=== PATIENT | female | born 1990 | race American Indian/Alaskan Native ===

== ENCOUNTER 2016-12-25 22:41 | Emergency (ER) | payer MEDICAID ==
[2016-12-26] MEDS ORDERED: Sodium Chloride 0.9% 1,000 ML IV ONE (01:17)
[2016-12-26] MEDS ORDERED: Ondansetron 4 MG/2 ML SDV IV ONE (01:18)
[2016-12-26 02:03] LABS: CHLORIDE,CL 106 mmol/L (101-111); SODIUM,NA 141 mmol/L (135-145)
[2016-12-26 02:20] VITALS: BP 106/42
[2016-12-26] MEDS ORDERED: cefTRIAXone 2 GM in Sodium Chloride 0.9% 100 ML IV ONE (02:22)
--- NOTE | 2016-12-26 03:03 | EDM.PDOC ---
ED HPI GENERAL MEDICAL PROBLEM - General Chief Complaint: Gastrointestinal Problem Stated Complaint: VOMITING ALL DAY Time Seen by Provider: 12/26/16 01:00 Source of Information: Reports: Patient History Limitations: Reports: No Limitations - History of Present Illness INITIAL COMMENTS - FREE TEXT/NARRATIVE: C/O nausea vomiting and diarrhea today. Chills this evening. 7-8 loose watery stools, Vomited 5-6 times. Denies pain, feels bloated and gassy Onset: Today Abdominal Pain Score (Numeric/FACES): 2 - Related Data Allergies Allergy/AdvReac Type Severity Reaction Status Date / Time diphenhydramine HCl Allergy Hives Verified 12/26/16 01:01 [From Benadryl] codeine AdvReac Vomiting Verified 11/20/15 10:02 morphine AdvReac Vomiting Verified 12/26/16 01:01 Home Meds: Home Meds . 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: , Spontaneous Musculoskeletal History: Reports: Back Pain, Chronic Neurological History: Reports: Concussion Psychiatric History: Reports: Anxiety Endocrine/Metabolic History: Reports: Obesity/BMI 30+ Hematologic History: Reports: Other (See Below) Other Hematologic History: spherocytosis Immunologic History: Reports: Immunosuppression Other Immunologic History: spherocytosis with splenectomy in 1998 Oncologic (Cancer) History: Reports: None Dermatologic History: Reports: None - Infectious Disease History Infectious Disease History: Reports: Chicken Pox - Past Surgical History Head Surgeries/Procedures: Reports: None GI Surgical History: Reports: Appendectomy, Cholecystectomy, Other (See Below) Other GI Surgeries/Procedures: spleenectomy Musculoskeletal Surgical History: Reports: Other (See Below) Other Musculoskeletal Surgeries/Procedures:: broke hip and pelvic Social & Family History - Tobacco Use Smoking Status *Q: Current Every Day Smoker Years of Tobacco use: 6 Packs/Tins Daily: 0.5 Second Hand Smoke Exposure: Yes - Caffeine Use Caffeine Use: Reports: Coffee, Soda - Alcohol Use Days Per Week of Alcohol Use: 0 - Recreational Drug Use Recreational Drug Use: Yes Drug Use in Last 12 Months: Yes Recreational Drug Type: Reports: Marijuana/Hashish Recreational Drug Use Frequency: Weekly - Living Situation & Occupation Living situation: Reports: Single, with Family ED ROS GENERAL - Review of Systems Review Of Systems: See Below Constitutional: Reports: Chills HEENT: Reports: No Symptoms Respiratory: Reports: No Symptoms Cardiovascular: Reports: No Symptoms GI/Abdominal: Reports: Diarrhea, Decreased Appetite, Nausea. Denies: Abdominal Pain : Reports: No Symptoms Musculoskeletal: Reports: No Symptoms Skin: Reports: No Symptoms Neurological: Reports: No Symptoms ED EXAM, GI/ABD - Physical Exam Exam: See Below Exam Limited By: No Limitations General Appearance: Alert, Mild Distress Ears: Normal External Exam, Normal Canal Nose: Normal Inspection, Normal Mucosa Throat/Mouth: Normal Lips, Normal Oropharynx Head: Atraumatic, Normocephalic Neck: Normal Inspection, Supple, Non-Tender Respiratory/Chest: No Respiratory Distress, Lungs Clear, Normal Breath Sounds Cardiovascular: Normal Peripheral Pulses, Regular Rate, Rhythm GI/Abdominal: Normal Bowel Sounds, Soft, No Distention, Hyperactive Bowel Sounds , Tenderness (epigastric). No: Hepatomegaly, Splenomegaly, McBurney's Sign, Hollis's Sign Extremities: Normal Inspection Neurological: Alert, Oriented Psychiatric: Normal Affect Skin Exam: Warm, Dry, Intact, Normal Color Course - Vital Signs Last Recorded V/S: Last Vital Signs Temp 97.1 F 12/26/16 02:18 Pulse 64 12/26/16 02:18 Resp 16 12/26/16 02:18 BP 106/42 L 12/26/16 02:18 Pulse Ox 98 12/26/16 02:18 - Orders/Labs/Meds Labs: Laboratory Tests 12/26/16 12/26/16 12/26/16 Range/Units 01:05 01:05 01:35 WBC 20.0 H (5.0-10.0) 10^3/uL RBC 5.54 H (4.2-5.4) 10^6/uL Hgb 14.0 (12.0-16.0) g/dL Hct 42.4 (37.0-47.0) % MCV 76.5 L (80-100) fL MCH 25.3 L (27.0-34.0) pg MCHC 33.0 (33.0-35.0) g/dL Plt Count 526 H (150-450) 10^3/uL Neut % (Auto) 85.8 H (42.2-75.2) % Lymph % (Auto) 9.1 L (20.5-50.1) % Burleigh % (Auto) 3.9 (2-8) % Eos % (Auto) 1.0 (1.0-3.0) % Baso % (Auto) 0.2 (0.0-1.0) % Sodium (135-145) mmol/L Potassium (3.6-5.0) mmol/L Chloride (101-111) mmol/L Carbon Dioxide (21.0-31.0) mmol/L Anion Gap BUN (7-18) mg/dL Creatinine (0.6-1.3) mg/dL Est Cr Clr Drug Dosing mL/min Estimated GFR (MDRD) BUN/Creatinine Ratio Glucose (74-105) mg/dL Calcium (8.4-10.2) mg/dl Total Bilirubin (0.2-1.0) mg/dL AST (10-42) IU/L ALT (10-60) IU/L Alkaline Phosphatase (42-121) IU/L C-Reactive Protein (0.0-1.3) mg/dL Total Protein (6.7-8.2) g/dl Albumin (3.2-5.5) g/dl Globulin Albumin/Globulin Ratio Amylase (28-100) U/L Lipase (22-51) U/L Urine Color Yellow (YELLOW) Urine Appearance Slightly cloudy (CLEAR) Urine pH 6.0 (5.0-9.0) Ur Specific Walton 1.025 (1.005-1.030) Urine Protein 30 H (NEGATIVE) Urine Glucose (UA) Negative (NEGATIVE) Urine Ketones 80 H (NEGATIVE) Urine Occult Blood Negative (NEGATIVE) Urine Nitrite Positive H (NEGATIVE) Urine Bilirubin Small H (NEGATIVE) Urine Urobilinogen 1.0 (0.2-1.0) mg/dL Ur Leukocyte Esterase Trace H (NEGATIVE) Urine RBC 0-5 /HPF Urine WBC 0-5 (0-5/HPF) /HPF Ur Epithelial Cells Moderate H /HPF Urine Bacteria Many H (0-FEW/HPF) /HPF Urine Mucus Moderate H /LPF Urinalysis Comment Urine HCG, Qual Negative 12/26/16 12/26/16 Range/Units 01:35 01:35 WBC (5.0-10.0) 10^3/uL RBC (4.2-5.4) 10^6/uL Hgb (12.0-16.0) g/dL Hct (37.0-47.0) % MCV (80-100) fL MCH (27.0-34.0) pg MCHC (33.0-35.0) g/dL Plt Count (150-450) 10^3/uL Neut % (Auto) (42.2-75.2) % Lymph % (Auto) (20.5-50.1) % Burleigh % (Auto) (2-8) % Eos % (Auto) (1.0-3.0) % Baso % (Auto) (0.0-1.0) % Sodium 141 (135-145) mmol/L Potassium 3.5 L (3.6-5.0) mmol/L Chloride 106 (101-111) mmol/L Carbon Dioxide 24.0 (21.0-31.0) mmol/L Anion Gap 14.5 BUN 12 (7-18) mg/dL Creatinine 0.6 (0.6-1.3) mg/dL Est Cr Clr Drug Dosing 116.97 mL/min Estimated GFR (MDRD) > 60 BUN/Creatinine Ratio 20.00 Glucose 99 (74-105) mg/dL Calcium 8.7 (8.4-10.2) mg/dl Total Bilirubin 1.0 (0.2-1.0) mg/dL AST 18 (10-42) IU/L ALT 16 (10-60) IU/L Alkaline Phosphatase 98 (42-121) IU/L C-Reactive Protein 1.3 (0.0-1.3) mg/dL Total Protein 7.8 (6.7-8.2) g/dl Albumin 4.4 (3.2-5.5) g/dl Globulin 3.4 Albumin/Globulin Ratio 1.29 Amylase 47 (28-100) U/L Lipase 29 (22-51) U/L Urine Color (YELLOW) Urine Appearance (CLEAR) Urine pH (5.0-9.0) Ur Specific Walton (1.005-1.030) Urine Protein (NEGATIVE) Urine Glucose (UA) (NEGATIVE) Urine Ketones (NEGATIVE) Urine Occult Blood (NEGATIVE) Urine Nitrite (NEGATIVE) Urine Bilirubin (NEGATIVE) Urine Urobilinogen (0.2-1.0) mg/dL Ur Leukocyte Esterase (NEGATIVE) Urine RBC /HPF Urine WBC (0-5/HPF) /HPF Ur Epithelial Cells /HPF Urine Bacteria (0-FEW/HPF) /HPF Urine Mucus /LPF Urinalysis Comment Urine HCG, Qual Meds: Medications Discontinued Medications Generic Name Dose Route Start Last Admin Trade Name Ruchi PRN Reason Stop Dose Admin Sodium Chloride 1,000 mls @ 999 mls/hr 12/26/16 01:17 12/26/16 01:28 Normal Saline IV 12/26/16 02:17 999 mls/hr .BOLUS ONE Administration Ceftriaxone Sodium 2 gm/ 100 mls @ 200 mls/hr 12/26/16 02:22 12/26/16 02:39 Sodium Chloride IV 12/26/16 02:51 200 mls/hr ONETIME ONE Administration Ondansetron HCl 4 mg 12/26/16 01:18 12/26/16 01:29 Zofran IV 12/26/16 01:19 4 mg ONETIME ONE Administration Departure - Departure Time of Disposition: 03:00 Disposition: Home, Self-Care 01 Condition: Good Clinical Impression: UTI, Urinary tract infectious disease, Gastroenteritis - Discharge Information Instructions: Dehydration, Adult, Melr-hb-[id number], Diarrhea, Adult, [id number] Forms: ED Department Discharge Additional Instructions: increase fluid intake cipro 500mg one twice daily for 5 days zofran 4mg ODT one every 8 hours as needed for nausea #6 Follow up if symptoms worsen or unable to tolerate oral antibiotic and liquids
== END 2016-12-26 03:26 | disposition home or self-care (01) ==
LOC: DL.ED 22:41
DX: K52.9 Noninfective gastroenteritis and colitis, unspecified (principal); N39.0 Urinary tract infection, site not specified; K21.9 Gastro-esophageal reflux disease without esophagitis; E66.9 Obesity, unspecified; F17.210 Nicotine dependence, cigarettes, uncomplicated; H54.7 Unspecified visual loss; Z98.890 Other specified postprocedural states; Z90.49 Acquired absence of other specified parts of digestive tract; Z88.8 Allergy status to other drugs, medicaments and biological substances; Z88.6 Allergy status to analgesic agent; Z88.5 Allergy status to narcotic agent
CPT/HCPCS: 36415; 80053; 81001; 81025; 82150; 83690; 85025; 86140; 87086; 87491; 87591; 96365; 96367; 96375; 99284; J0696; J2405; J7030; J7050; 87088; 87186

== ENCOUNTER 2017-09-14 08:34 | Inpatient (IN) | payer MEDICAID ==
[~2017-09-14 08:34] MED LIST: Misoprostol 50 MCG (1/2 of 100 MCG) Tab VAG PRN; Penicillin G Potassium 5 MILLUNITS in Sodium Chloride 0.9% 100 ML IV PRN; Sodium Chloride 0.9% 10 ML Syringe FLUSH PRN
[2017-09-14] MEDS: Lactated Ringers 1,000 ML IV SCH ×3 (10:00→21:35)
[2017-09-14] MEDS ORDERED: Ondansetron 4 MG/2 ML SDV IVPUSH PRN (10:00)
[2017-09-14] MEDS ORDERED: Misoprostol 400 MCG (4 X 100 MCG TAB) RECTAL PRN (12:31)
[2017-09-14] MEDS ORDERED: Tranexamic Acid 1,000 MG in Sodium Chloride 0.9% 100 ML IV PRN (12:31)
[2017-09-14] MEDS ORDERED: Methylergonovine 0.2 MG/1 ML Amp IM PRN (12:31)
[2017-09-14] MEDS ORDERED: Lactated Ringers 500 ML IV ONE (12:31)
[2017-09-14] MEDS ORDERED: Lidocaine 1% 30 ML SDV INJECT PRN (12:31)
[2017-09-14] MEDS ORDERED: Carboprost Tromethamine 250 MCG/1 ML Amp IM PRN (12:31)
[2017-09-14] MEDS ORDERED: Oxytocin/Normal Saline 30 UNIT/500 ML BAG IV SCH (12:45)
[2017-09-14] MEDS: Penicillin G Potassium 2.5 MILLUNITS in Sodium Chloride 0.9% 100 ML IV SCH ×3 (13:44→20:58)
--- NOTE | 2017-09-14 20:12 | PCM.SN ---
- Free Text/Narrative Note: DOS: [id number] feeling cxns stronger no leakage of fluid or bleeding. baby active FHR reassuring cervix 7+ BOWI vertex -1/0 with cxn AROM with return of clear fluid. will allow to use hydrotherapy continue to monitor closely continue PCN prophylaxis for GBS continue to monitor VS may have intrathecal when indicated if desired. further management pending her clinical course in labor. All questions answered patient and staff aware of and satisfied with plan. brittanib.
[2017-09-14] MEDS ORDERED: Bupivacaine 0.75%/D5W 2 ML Amp ONE (20:46)
[2017-09-14] MEDS ORDERED: EPINEPHrine 1 MG/ML SDV ONE (20:46)
[2017-09-14] MEDS ORDERED: fentaNYL 100 MCG/2 ML SDV ONE (20:46)
--- NOTE | 2017-09-14 21:20 | PCM.SN ---
- Free Text/Narrative Note: Intrathecal. Sitting position, sterile prep and drape, 1 % lidocaine x 3 to L3 L4 and L2 L3 interspace. Introducer x 3, 24 Ga Pencan x3 . Pos CSF at L2 L3 interspace. Neg heme, neg parasthesia. 20 mcg PF sufenta, 30 mcg pf fentanyl, 1: 1000 pf epi wash, 0.4 ml pf ns and 6 mg of 0.75 % pf bupivacaine injected after CSF aspiration. Pt to L lateral side. Procedure time 2044 to 2129
[2017-09-14] MEDS ORDERED: ePHEDrine 50 MG/ML SDV ONE (21:47)
[2017-09-14] MEDS ORDERED: ePHEDrine 50 MG/ML SDV IVPUSH ONE (22:03)
--- NOTE | 2017-09-15 02:02 | DEL ---
DATE: 09/15/2017 PREOPERATIVE DIAGNOSES: 1. Intrauterine at 39 weeks' gestation. 2. Group B streptococcus positive. 3. Penicillin prophylaxis given. 4. G3, P1-0-1-1. 5. Gestational hypertension. 6. Advanced cervical dilation. 7. Hereditary spherocytosis with history of splenectomy. 8. Blood type O positive, rubella immune. 9. Positive UDS for methamphetamine on-admit, 960 filed 10. history of THC use prenatally. POSTOPERATIVE DIAGNOSES: 1. Intrauterine at 39 weeks' gestation, delivered. 2. Group B streptococcus positive. 3. Penicillin prophylaxis given. 4. G3, P1-0-1-1. 5. Gestational hypertension. 6. Advanced cervical dilation. 7. Hereditary spherocytosis with history of splenectomy. 8. Blood type O positive, rubella immune. 9. Positive UDS for methamphetamine on-admit, 960 filed 10. history of THC use prenatally. PROCEDURES PERFORMED: NST, Cytotec, artificial rupture of membranes, and then subsequent spontaneous vaginal delivery per Dr. Cifuentes. WELDING EQUIPMENT SALES REPRESENTATIVE: VIANEY ShayIII. ANESTHESIA/ANALGESIA: The patient did receive an intrathecal in the first stage of labor. ESTIMATED BLOOD LOSS: 300 mL. FINDINGS: Female with scores 8 and 9. Weight pending. SUMMARY OF EVENTS: The patient is a 27-year-old, G3, P1-0-1-1 intrauterine at 39 weeks' gestation, admitted with gestational hypertension and advanced cervical dilation. She subsequently had Cytotec placed and was serially re-evaluated and was noted to have significant cervical change. A bulging bag of water was felt, and artificial rupture of membranes was performed yielding copious amounts of clear fluid. She was followed thereafter and serially evaluated and an intrathecal was given. Subsequently, she was found to be complete. Dr. Cifuentes and I were called to the room. We both donned sterile gloves and gown, and the patient started pushing with contractions. She was in the second stage of labor. The vertex was delivered in the OP presentation, followed by anterior and posterior shoulder, followed by the rest of the . Mouth and nares were suctioned and the cord was doubly clamped and cut. The was resuscitated on mother's abdomen and then approximately 10 mL of cord blood was obtained for labs. The placenta was then delivered with gentle cord traction and fundal massage within 10 minutes. The placenta was found to be intact and there is a three-vessel cord. The perineum, vaginal and perirectal areas were then examined and no lacerations were observed. Mother and infant are currently stable at the time of dictation. The history, physical, assessment and plan are per Dr. Cifuentes and this note is being scribed for Dr. Cifuentes. [facility] /[id number] MTDD
[2017-09-15] MEDS: Penicillin G Potassium 2.5 MILLUNITS in Sodium Chloride 0.9% 100 ML IV SCH ×2 (05:12→11:37)
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
[2017-09-15] MEDS: Prenatal Multivitamin with Calcium/Folic Acid/Iron Tab PO SCH (10:02)
[2017-09-15] MEDS: Docusate Sodium 100 MG Cap PO PRN (10:02)
[2017-09-15] MEDS: Ibuprofen 800 MG Tab PO PRN ×2 (10:02→17:25)
[2017-09-15] MEDS ORDERED: fentaNYL 100 MCG/2 ML SDV ITHECAL ONE (15:50)
[2017-09-15] MEDS ORDERED: EPINEPHrine 1 MG/ML SDV ONE (15:50)
[2017-09-15] MEDS: Acetaminophen 325 MG Tab PO PRN (16:17)
--- NOTE | 2017-09-15 22:27 | PCM.SN ---
- Free Text/Narrative Note: DOS: 3-28-18 Criselda requested to visit with me today re: her positive UDS. She is aware that it was positive for meth on admit. She denies any recent use. States she hasn't used in over a year and doesn't allow meth in her house. She is wondering if anything might have caused a false positive result. we discussed possibilities, and also that confirmatory testing is pending. She understands that psychiatric social worker supervisor will be visiting with her re: this, and due to hx of positive THC results during care. All questions answered for Criselda. Continue plan for likely discharge home for both of them tomorrow. Also, admit hgb 12 with EBL 300 and light flow. VSS and clinically doing well. Hgb for morning cancelled as unnecessary. hmb
[2017-09-16] MEDS: Ibuprofen 800 MG Tab PO PRN (03:32)
[2017-09-16 07:24] VITALS: BP 114/50
[2017-09-16] MEDS: Prenatal Multivitamin with Calcium/Folic Acid/Iron Tab PO SCH (08:40)
[2017-09-16] MEDS: Docusate Sodium 100 MG Cap PO PRN (08:40)
[2017-09-16] MEDS: Acetaminophen 325 MG Tab PO PRN (08:40)
--- NOTE | 2017-09-16 10:06 | DISCH ---
DATE OF SERVICE: 09/16/2017 DATE OF ADMISSION: 09/14/2017 ADMITTING DIAGNOSES: 1. Intrauterine at 39 weeks' gestation. 2. Gestational hypertension. 3. Advanced cervical dilation. 4. Group B streptococcus positive, blood type O positive, rubella immune, and varicella nonimmune. 5. Hereditary spherocytosis, status post splenectomy. 6. G3, P1-0-1-1. 7. History of maternal THC use prenatally, UDS positive for methamphetamine on admit. DISCHARGE DIAGNOSES: 1. Intrauterine at 39 weeks' gestation. 2. Delivered via normal spontaneous vaginal delivery. 3. Gestational hypertension. 4. Advanced cervical dilation. 5. Group B streptococcus positive with penicillin prophylaxis given, blood type O positive, rubella immune, and varicella nonimmune . 6. Hereditary spherocytosis, status post splenectomy. 7. G3, P1-0-1-1. 8. History of maternal THC use prenatally, UDS positive for methamphetamine on admit with confirmatory test pending. vice president client services involved. PROCEDURES PERFORMED: Nonstress test, Cytotec, artificial rupture of membranes, and then subsequent spontaneous vaginal delivery per Dr. Cifuentes. HISTORY OF PRESENT ILLNESS: Please see H and P. SUMMARY OF HOSPITAL COURSE: The patient was admitted on the above date with the above diagnoses and underwent a normal spontaneous vaginal delivery yielding a female; scores of 8 and 9; weighing 7 pounds, 3170 g, with an EBL of 300 mL. The patient did receive an intrathecal in the first stage of labor. day #0, please see progress note. day #1, the date of discharge, the patient was tolerating a general diet, ambulating, urinating, and passing flatus. No bowel movement yet. No concerns per nursing staff. The patient notes some lower abdominal pain throughout the night, rated an 11/10, that is relieved with ibuprofen. No other concerns per patient. She denies fevers or chills, shortness of breath or chest pain, nausea or vomiting, tenderness in any extremity. She notes lochia that is mild in amount with some clots. OBJECTIVE: Vital Signs: Temperature 97 Fahrenheit, heart rate 67, blood pressure 114/50, respiratory rate 18, and oxygen saturation 99% on room air. Lungs: Clear to auscultation bilaterally. No rales, rhonchi, or wheezes with normal respiratory effort. Heart: Regular rate and rhythm. S1 and S2. Abdomen: Soft, nontender, and nondistended. Uterus is firm and palpated at the level of the umbilicus. Extremities: Edema 1+ in the upper and lower extremities bilaterally. No erythema or tenderness. Skin: Warm, dry, well perfused LABORATORY DATA: Last drawn on the date of admission, 09/14/2017, white blood cells 16.1, hemoglobin 12, and platelet count 499. CONDITION ON DISCHARGE COMPARED TO CONDITION ON ADMISSION: Improved. DISCHARGE INSTRUCTIONS: 1. Diet as tolerated. 2. Activity: No lifting more than 20 pounds. No sit-ups, straining, and pelvic rest for the next 6 weeks with immediate return to fertility was discussed with the patient. 3. Reasons to return or go to the emergency room were discussed with the patient in detail, including but not limited to temperature greater than 100.4 Fahrenheit; foul-smelling discharge; red hot tender breasts or increased vaginal bleeding or increasing pain no longer controlled by ibuprofen or Tylenol. 4. It was discussed in the interim, the reasons to return or go to the emergency room in regard to her . DISCHARGE MEDICATIONS: 1. [id number] Tylenol or ibuprofen as needed for pain. 2. vitamins x6 weeks. FOLLOWUP: Followup has been scheduled for her in 4 days on 09/20/2017, with Dr. Wylie in the clinic. The patient was instructed to schedule her [address] Cifuentes at that time. The patient expressed understanding and is in agreement with the above plan, and all of her questions were answered. The history, physical, assessment and plan are per Dr. Wylie; and this note is being scribed for Dr. Wylie. seen and agreed with med student-FRANK MODL /[id number] NIDIA
== END 2017-09-16 11:16 | disposition home or self-care (01) | DRG 775 ==
LOC: DL.OBCHECK 08:34 → DL.OB 10:03 → OBSVTOIN 09-15 00:44
PROVIDERS: ADMIT Family Medicine; ATTEND Family Medicine
PROC: 00HU33Z Insertion of Infusion Device into Spinal Canal, Percutaneous Approach (ICD-10-PCS; 2017-09-14)
PROC: 3E0R3BZ Introduction of Anesthetic Agent into Spinal Canal, Percutaneous Approach (ICD-10-PCS; 2017-09-14)
PROC: 10E0XZZ Delivery of Products of Conception, External Approach (ICD-10-PCS; principal; 2017-09-15)
PROC: 3E0P7VZ Introduction of Hormone into Female Reproductive, Via Natural or Artificial Opening (ICD-10-PCS; 2017-09-15)
PROC: 10907ZC Drainage of Amniotic Fluid, Therapeutic from Products of Conception, Via Natural or Artificial Opening (ICD-10-PCS; 2017-09-15)
DX: O13.4 Gestational [pregnancy-induced] hypertension without significant proteinuria, complicating childbirth (principal); Z37.0 Single live birth; O64.0XX0 Obstructed labor due to incomplete rotation of fetal head, not applicable or unspecified; O99.824 Streptococcus B carrier state complicating childbirth; Z3A.38 38 weeks gestation of pregnancy
CPT/HCPCS: 01967; 36415; 59025; 59409; 80305; 81003; 82565; 82570; 83615; 84156; 84450; 84460; 84520; 84550; 85027; A9270-GY; J0171; J2405; J2540; J2590; J3010; J7050; J7120

== ENCOUNTER 2019-12-19 04:29 | Emergency (ER) | payer SELFPAY ==
[2019-12-19] MEDS ORDERED: Sodium Chloride 0.9% 1,000 ML IV ONE (04:39)
[2019-12-19] MEDS ORDERED: Ondansetron 4 MG/2 ML SDV IVPUSH ONE (04:39)
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
[2019-12-19 05:53] LABS: ANION GAP 12.4 mEq/L (7-13); CHLORIDE,CL 105 mmol/L (98-107); SODIUM,NA 139 mmol/L (136-145)
[2019-12-19] MEDS ORDERED: Iopamidol 612 MG/ML 100 ML Bottle IVPUSH ONE (06:14)
[2019-12-19] MEDS ORDERED: ceFAZolin 1 GM in Premix Bag 1 BAG IV ONE (07:24)
[2019-12-19] MEDS ORDERED: Pantoprazole 40 MG Vial IVPUSH ONE (07:25)
[2019-12-19] MEDS ORDERED: Ondansetron 4 MG/2 ML SDV IV ONE (07:25)
--- NOTE | 2019-12-19 07:38 | CT ---
PROCEDURE INFORMATION: Exam: CT Abdomen And Pelvis With Contrast Exam date and time: 12/19/2019 7:05 AM Age: 29 years old Clinical indication: Abdominal pain; Epigastric; Prior surgery; Surgery date: 6+ months; Surgery type: Cholecystectomy, appendectomy, splenectomy due to spherocytosis; Additional info: Upper abdominal pain (wbc - 20.0) TECHNIQUE: Imaging protocol: Computed tomography of the abdomen and pelvis with intravenous contrast. Radiation optimization: All CT scans at this facility use at least one of these dose optimization techniques: automated exposure control; mA and/or kV adjustment per patient size (includes targeted exams where dose is matched to clinical indication); or iterative reconstruction. Contrast material: ISOVUE; Contrast volume: 75 ml; Contrast route: INTRAVENOUS (IV); COMPARISON: CT Abdomen Pelvis w Cont 05/20/2014 4:57 PM FINDINGS: Lungs: Unchanged scarring/atelectasis in the left lung base. Heart: Unchanged normal heart size. Mediastinal space: Unchanged distal esophageal wall thickening and small hiatal hernia. Liver: Unchanged normal liver. Gallbladder and bile ducts: Unchanged cholecystectomy. Unchanged residually dilated CBD, up to 15 mm with gradual tapering distally. No CBD stone. Pancreas: Unchanged normal pancreas. Possible low-grade inflammation of the 2nd and 3rd portions of the duodenum, difficult to separate from the uncinate process head and neck of the pancreas. Spleen: Unchanged splenectomy. Adrenals: Unchanged normal adrenals. Kidneys and ureters: Unchanged sub 5 mm renal cysts. No obstructive uropathy. Stomach and bowel: Partially distended stomach with gas fluid level. Incidental duodenal diverticulum. Nonobstructed small bowel. Largely fluid-filled right colon. Incompletely distended transverse and left colon with formed fecal material in gas. Largely nondistended rectosigmoid colon. No peggy colitis or diverticulitis. Appendix: Unchanged appendectomy. Intraperitoneal space: No free air, gross ascites, or abscess. Vasculature: Unchanged normal vasculature. Lymph nodes: Unchanged small lymph nodes. Bladder: Unchanged moderate urinary bladder with small bladder cystocele. Reproductive: Unchanged tilted uterus to left with cervical nabothian cysts. Interval degenerating corpus luteal cyst of right ovary, possibly leaking with right periadnexal fluid. Overall size of right ovary = 4 x 3.4 cm on today's study compared to 4.5 x 3.8 cm on prior exam. Unchanged normal left ovary. Bones/joints: Scoliosis. No destructive bony lesion. No spondylolysis. No spondylolisthesis. Five non rib-bearing lumbar vertebral bodies with normal heights. Intact lower thoracic spine. No pelvic fracture or hematoma. Soft tissues: Dense fibroglandular breast tissue of visualized inferior breasts on this exam. Unchanged fat containing umbilical hernia. IMPRESSION: 1. Equivocal findings involving the duodenum and peripancreatic soft tissues. Differential includes a normal variant versus low-grade duodenitis or pancreatitis. Correlate with pancreatic enzymes. No walled-off necrosis or pseudocyst. No pancreatic abscess or necrosis. 2. Incompletely distended stomach with nonspecific wall thickening. No peggy gastric or duodenal ulceration. 3. Liquid stool or diarrhea pattern in the right colon; however, formed fecal material and gas are noted in the transverse and left colon. No bowel obstruction. 4. Degenerating right corpus luteal cyst is new from the prior exam, likely leaking right ovarian cyst. 5. Unchanged cholecystectomy, splenectomy, and appendectomy surgical findings. 6. See report body for additional unchanged or nonemergent findings compared to prior exam.
[2019-12-19] MEDS ORDERED: Ketorolac 30 MG/ML SDV IVPUSH ONE (07:48)
[2019-12-19] MEDS ORDERED: HYDROmorphone 1 MG/ML Syringe IM ONE (08:23)
[2019-12-19] MEDS ORDERED: HYDROmorphone 1 MG/ML Syringe ONE (08:48)
[2019-12-19 08:52] VITALS: BP 132/94; PULSE 117
[2019-12-19] MEDS ORDERED: GI Cocktail Oral Solution 30 ML PO ONE (09:28)
== END 2019-12-19 08:45 | disposition home or self-care (01) ==
LOC: DL.ED 04:29
DX: K29.00 Acute gastritis without bleeding (principal); K85.30 Drug induced acute pancreatitis without necrosis or infection; K59.00 Constipation, unspecified; F15.10 Other stimulant abuse, uncomplicated; Q89.01 Asplenia (congenital); F41.9 Anxiety disorder, unspecified; E66.9 Obesity, unspecified; Z68.31 Body mass index [BMI] 31.0-31.9, adult; F17.210 Nicotine dependence, cigarettes, uncomplicated; Z90.49 Acquired absence of other specified parts of digestive tract; Z88.8 Allergy status to other drugs, medicaments and biological substances; Z88.5 Allergy status to narcotic agent
CPT/HCPCS: 36415; 74177; 80053; 80305; 80307; 81003; 81025; 82150; 83690; 85025; 96361; 96365; 96372; 96375; 96376; 99284; A9270; C9113; J0690; J1170; J1885; J2405; J7030; Q9967

== ENCOUNTER 2020-05-28 21:55 | Emergency (ER) | payer SELFPAY ==
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
[2020-05-28 22:54] VITALS: BP 150/88; PULSE 84
[2020-05-28] MEDS ORDERED: Dexamethasone 6 MG TABLET PO ONE (23:57)
[2020-05-29] MEDS ORDERED: Albuterol 6.7 GM Inhaler INH ONE (00:02)
[2020-05-29 00:25] LABS: ANION GAP 13.5 mEq/L (7-13); SODIUM,NA 141 mmol/L (138-146)
[2020-05-29 00:26] LABS: CHLORIDE,CL 104 mmol/L (98-109)
== END 2020-05-29 00:40 ==
LOC: DL.ED 21:55
DX: U07.1 COVID-19 (principal); E66.9 Obesity, unspecified; Z68.34 Body mass index [BMI] 34.0-34.9, adult; Z88.6 Allergy status to analgesic agent; Z88.8 Allergy status to other drugs, medicaments and biological substances; Z88.5 Allergy status to narcotic agent; Z79.899 Other long term (current) drug therapy
CPT/HCPCS: 36415; 80053; 81003; 81025; 83605; 84484; 85025; 85379; 87040; 87635; 93005; 99285; A9270; J8540; U0002

== ENCOUNTER 2021-02-27 17:09 | Emergency (ER) | payer SELFPAY ==
[2021-02-27 17:34] LABS: AMPHETAMINES,URINE POSITIVE (NEGATIVE); BARBITURATES,URINE NEGATIVE (NEGATIVE); BENZODIAZEPINE,URINE NEGATIVE (NEGATIVE); MDMA (ECSTASY), URINE POSITIVE (NEGATIVE); METHADONE,URINE NEGATIVE (NEGATIVE); METHAMPHETAMINES,URINE POSITIVE (NEGATIVE); OPIATES,URINE NEGATIVE (NEGATIVE); OXYCODONE,URINE NEGATIVE (NEGATIVE); PHENCYCLIDINE,URINE NEGATIVE (NEGATIVE); TCA,URINE NEGATIVE (NEGATIVE)
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
[2021-02-27] MEDS ORDERED: Sodium Chloride 0.9% 1,000 ML IV ONE (19:28)
[2021-02-27 19:33] VITALS: BP 141/90; PULSE 97
[2021-02-27 19:51] LABS: ANION GAP 13.8 mEq/L (7-13); CHLORIDE,CL 105 mmol/L (98-107); SODIUM,NA 140 mmol/L (136-145)
[2021-02-27 19:53] LABS: ACETAMINOPHEN 0 ug/mL (10-30 (Therapeutic))
[2021-03-05 14:47] LABS: C.TRACHOMATIS BY TMA Positive (Negative); N.GONORRHOEAE BY TMA Positive (Negative)
== END 2021-02-27 21:44 ==
LOC: EDSEX → DL.ED 17:09 → MERGE 17:09 → DL.ED 21:44
DX: F19.10 Other psychoactive substance abuse, uncomplicated (principal); Z20.822 Contact with and (suspected) exposure to COVID-19
CPT/HCPCS: 36415; 71111; 80053; 80143; 80179; 80305; 80307; 81001; 81025; 85025; 87086; 87491; 87563; 87591; 87635; 99285; J7030; U0002

== ENCOUNTER 2021-06-13 05:23 | Emergency (ER) | payer SELFPAY ==
[2021-06-13 05:56] VITALS: BP 154/98; PULSE 106
== END 2021-06-13 06:02 | disposition left against medical advice (07) ==
LOC: DL.ED 05:23
DX: Z53.21 Procedure and treatment not carried out due to patient leaving prior to being seen by health care provider (principal)

== ENCOUNTER 2023-08-01 08:08 | Emergency (ER) | payer OTHER ==
[2023-08-01 08:37] VITALS: BP 147/89; PULSE 82
[2023-08-01] MEDS: Ketorolac 30 MG/ML SDV IVPUSH ONE (09:16)
[2023-08-01] MEDS: Ondansetron 4 MG/2 ML SDV IV ONE (09:17)
[2023-08-01] MEDS: Sodium Chloride 0.9% 10 ML Syringe FLUSH PRN (09:17)
[2023-08-01] MEDS: cefTRIAXone 1 GM Vial IVPUSH ONE (09:17)
[2023-08-01] MEDS: Famotidine 20 MG/2 ML SDV IVPUSH ONE (09:17)
[2023-08-01] MEDS: Sodium Chloride 0.9% 1,000 ML IV ONE (09:18)
[2023-08-01 09:29] LABS: HEMOGLOBIN 15.4 g/dL (12.0-16.0); MEAN CORPUSCULAR HEMOGLOBIN 28.5 pg (27.0-34.0); MEAN CORPUSCULAR HGB CONC 33.5 g/dL (33.0-35.0); RED BLOOD CELL COUNT 5.41 10^6/uL (4.2-5.4); WHITE BLOOD CELL COUNT,WBC 22.8 10^3/uL (5.0-10.0)
[2023-08-01 09:33] LABS: BASOPHILS PERCENT AUTO 0.2 % (0.0-1.0); EOSINOPHILS PERCENT AUTO 0.4 % (1.0-3.0); LYMPHOCYTES PERCENT AUTO 7.8 % (20.5-50.1); MONOCYTES PERCENT AUTO 2.7 % (2-8); NEUTROPHILS PERCENT AUTO 88.9 % (42.2-75.2)
[2023-08-01] MEDS: Sucralfate Suspension 1 GM/10 ML Cup PO ONE (10:06)
[2023-08-01] MEDS: Lidocaine 2% Viscous Solution 15 ML UD PO ONE (10:06)
[2023-08-01] MEDS: Azithromycin 500 MG in Sodium Chloride 0.9% 250 ML IV ONE (10:15)
[2023-08-01 10:34] LABS: BAND PERCENT MAN 1 %; PLATELET COUNT,PLT 554 10^3/uL (150-450); SEG NEUTROPHILS PERCENT MAN 86 % (42-75)
[2023-08-01 10:35] LABS: HOWELL JOLLY BODIES 2+ MODERATE; LYMPHOCYTES PERCENT MAN 11 % (20-50); MONOCYTES PERCENT MAN 2 % (2-8); PLATELET COUNT ESTIMATE INCREASED; SPHEROCYTES 1+ SLIGHT
[2023-08-01 10:42] LABS: A/G RATIO 0.9; ALANINE AMINOTRANSFERASE,ALT 129 U/L (14-59); ALBUMIN 3.6 g/dL (3.4-5.0); ALKALINE PHOSPHATASE 112 U/L (46-116); AMYLASE 50 U/L (25-115); ANION GAP 13.6 mEq/L (7-13); ASPARTATE AMNIOTRANSFERASE,AST 66 U/L (15-37); BILIRUBIN TOTAL 0.4 mg/dL (0.2-1.0); BLOOD UREA NITROGEN,BUN 7 mg/dL (7-18); BUN/CREATININE RATIO 9.9 (No establ ref range); CALCIUM 8.3 mg/dL (8.5-10.1); CARBON DIOXIDE,CO2 27 mmol/L (21-32); CHLORIDE,CL 108 mmol/L (98-107); CREATININE 0.71 mg/dL (0.55-1.02); EST CRCL DRUG DOSING (CG) 94.97 mL/min; GLUCOSE RANDOM 112 mg/dL (70-99); LIPASE 32 U/L (16-77); POTASSIUM,K 3.6 mmol/L (3.5-5.1); PROTEIN TOTAL,TP 7.5 g/dL (6.4-8.2); SODIUM,NA 145 mmol/L (136-145)
[2023-08-01 10:45] LABS: LACTIC ACID 1.7 mmol/L (0.4-2.0)
[2023-08-01 10:52] LABS: ESTIMATED GFR 117 mL/min (>=60); ETHANOL BLOOD MEDICAL < 3 mg/dL (0)
== END 2023-08-01 11:52 | disposition home or self-care (01) ==
LOC: DL.ED 08:08
DX: K29.20 Alcoholic gastritis without bleeding (principal); Z90.49 Acquired absence of other specified parts of digestive tract; Z79.899 Other long term (current) drug therapy; Z88.5 Allergy status to narcotic agent; Z88.6 Allergy status to analgesic agent
CPT/HCPCS: 36415; 80053; 80307; 82150; 83605; 83690; 84145; 85025; 96361; 96365; 96375; 99284; A9270; J0456; J0696; J1885; J2405; J3490; J7030; J7050